=== PATIENT | male | born 1955 | race Caucasian/White ===

== ENCOUNTER 2018-11-30 22:19 | Emergency (ER) | payer MEDICARE, OTHER ==
[~2018-11-30] VITALS: Ht 180.3 cm; Wt 70.0 kg
[2018-11-30 22:30] VITALS: Ht 180.3 cm; Wt 70.0 kg
--- NOTE | 2018-12-01 00:25 | ERD ---
ER Documentation Chief Complaint Chief Complaint abdominal pain today HPI The patient is a 63-year-old male, presenting to the ER because of diffuse abdominal pain that began around yesterday 5 PM, denies similar symptoms previously, complains of vomiting x2 hours initially food then mucus, denies fever, chills, neck pain, chest pain, dyspnea, dysuria, diarrhea. He does not smoke nor drink Past medical history: None Past surgical history: Bilateral knee arthroscopy ROS All systems reviewed and are negative except as per history of present illness. Medications Home Meds Active Scripts Ibuprofen* (Motrin*) 600 Mg Tab, 600 MG PO Q6H PRN for PAIN, #20 TAB Prov:KARLI KENNEDY MD 12/01/18 Amoxicillin/Potassium Clav (Amox-Clav 875-125 mg Tablet) 875-125 mg Tab, 1 TAB PO TID for 7 Days, #21 TAB Prov:KARLI KENNEDY MD 12/01/18 Physical Exam Vitals Vital Signs Date Temp Pulse Resp B/P (MAP) Pulse Ox O2 O2 Flow FiO2 Time Delivery Rate 12/01/18 98.0 97 20 168/91 97 Room Air 03:23 (116) 12/01/18 72 26 181/88 98 Room Air 01:31 (119) 11/30/18 99.7 77 18 198/96 98 22:30 (130) Physical Exam Const: No acute distress. Head: Atraumatic. Eyes: Normal Conjunctiva. ENT: Normal External Ears, Nose and Mouth. Neck: Full range of motion. No meningismus. Resp: Clear to auscultation bilaterally. Cardio: Regular rate and rhythm. Abd: Soft, non distended, normal bowel sounds, vague and diffuse abdominal tenderness, no rigidity/rebound/CVA tenderness Skin: No petechiae or rashes. Back: No midline or flank tenderness. Ext: No cyanosis, or edema. Neur: Awake and alert. No focal deficit Psych: Normal Mood and Affect. Result Diagram: 12/01/1811312/01/18113 Results 24 hrs Laboratory Tests Test 12/01/18 01:14 12/01/18 02:29 White Blood Count 13.6 10^3/ul Red Blood Count 4.68 10^6/ul Hemoglobin 13.6 g/dl Hematocrit 42.1 % Mean Corpuscular Volume 90.0 fl Mean Corpuscular Hemoglobin 29.1 pg Mean Corpuscular Hemoglobin Concent 32.3 g/dl Red Cell Distribution Width 12.6 % Platelet Count 321 10^3/UL Mean Platelet Volume 9.8 fl Immature Granulocytes % 0.400 % Neutrophils % 92.6 % Lymphocytes % 3.5 % Monocytes % 3.2 % Eosinophils % 0.0 % Basophils % 0.3 % Nucleated Red Blood Cells % 0.0 /100WBC Immature Granulocytes # 0.050 10^3/ul Neutrophils # 12.6 10^3/ul Lymphocytes # 0.5 10^3/ul Monocytes # 0.4 10^3/ul Eosinophils # 0.0 10^3/ul Basophils # 0.0 10^3/ul Nucleated Red Blood Cells # 0.0 10^3/ul Sodium Level 141 mmol/L Potassium Level 4.1 mmol/L Chloride Level 101 mmol/L Carbon Dioxide Level 29 mmol/L Anion Gap 11 Blood Urea Nitrogen 14 mg/dl Creatinine 0.76 mg/dl Est Glomerular Filtrat Rate mL/min > 60 mL/min Glucose Level 204 mg/dl Calcium Level 9.4 mg/dl Total Bilirubin 0.4 mg/dl Direct Bilirubin 0.00 mg/dl Indirect Bilirubin 0.4 mg/dl Aspartate Amino Transf (AST/SGOT) 23 IU/L Alanine Aminotransferase (ALT/SGPT) 7 IU/L Alkaline Phosphatase 58 IU/L Total Protein 8.0 g/dl Albumin 4.7 g/dl Globulin 3.30 g/dl Albumin/Globulin Ratio 1.42 Lipase 42 U/L Bedside Urine pH (LAB) 7.0 Bedside Urine Protein (LAB) 1+ Bedside Urine Glucose (UA) 0.50% Bedside Urine Ketones (LAB) Negative Bedside Urine Blood Trace-intact Bedside Urine Nitrite (LAB) Negative Bedside Urine Leukocyte Esterase (L Negative Current Medications Medications Dose Sig/Shital Start Time Status Last (Trade) Ordered Route PRN Stop Time Admin Dose Reason Admin Ketorolac 15 mg ONCE STAT 12/01/18 DC 12/01/18 Tromethamine IV 00:44 01:09 (Toradol) 12/01/18 00:46 Ondansetron 4 mg ONCE STAT 12/01/18 DC 12/01/18 HCl (Zofran IV 00:44 01:09 Inj) 12/01/18 00:46 875 mg ONCE ONCE 12/01/18 DC 12/01/18 Amoxicillin/ PO 02:30 03:12 Clavulanate 12/01/18 02:31 Potassium (Augmentin) Procedures/MDM [place] [id number] Radiology Main Line: [phone] DIAGNOSTIC IMAGING REPORT Patient: DARIA GARZA : 1955 Age: 63 Sex: M MR #: [id number] DOS: 12/01/18 0044 Ordering MD: KARLI KENNEDY MD Location: E/R Room/Bed: PROCEDURE: CT Abdomen and pelvis without contrast. CLINICAL INDICATION: Abdominal pain. TECHNIQUE: CT scan of the abdomen and pelvis was performed on a multi- detector high-resolution CT scanner. Contiguous axial images were obtained from the lung bases to the ischial tuberosities without intravenous contrast. Coronal and sagittal reformatted images were also obtained. Images were reviewed on the PACS workstation. DICOM images are available. One or more of the following dose reduction techniques were used: - Automated exposure control. - Adjustment of the mA and/or kV according to patient size. - Use of iterative reconstruction technique. Exam CTD/vol = 8.58 mGy. Total exam DLP = 567.99 mGy-cm. COMPARISON: None. FINDINGS: Evaluation of the lung bases demonstrates mild bibasilar atelectasis. Abdomen: The liver is normal in size. There is no focal mass or dilatation of the biliary tree. The gallbladder is distended. The spleen, pancreas and bilateral adrenal glands are within normal limits. Bilateral kidneys are normal in size with a cyst within the upper pole of the right kidney. There is no radiopaque renal or ureteral calculus identified. There is no hydronephrosis or hydroureter. There is no retroperitoneal adenopathy. The abdominal aorta is of normal caliber. There is a small umbilical hernia containing fat. There is no bowel obstruction or free air. A normal appendix is identified. There is diverticulosis of the descending and sigmoid colon with mild thickening. There is no ascites. Pelvis: The bladder is unremarkable. There are bilateral small inguinal hernias containing fat. The prostate and seminal vesicles are within normal limits. There is no significant pelvic adenopathy or free fluid. Evaluation of the osseous structures demonstrates no suspicious lytic or blastic lesion. IMPRESSION: Descending and sigmoid diverticulosis. There is mild thickening of the descending and sigmoid colon which could be due to underdistension or represent a nonspecific colitis or mild diverticulitis. Small umbilical and bilateral inguinal hernias containing fat. Right renal cyst. .Sesar Colby MD, MD Date Time Electronically viewed and signed by .Sesar Colby MD, MD on 12/01/2018 01:49 .T/ CC: KARLI KENNEDY MD [id number] MEDICAL MAKING DECISION: The patient is 63-year-old male, presenting with acute mild diverticulitis, treated with Toradol and 50 mg IV for pain, Zofran 4 mg IV for nausea, Augmentin 875 mg p.o. for diverticulitis with good response, is stable for outpatient follow-up The differential diagnoses considered include but are not limited to cholelithiasis, cholecystitis, choledocholithiasis, cholangitis, pancreatitis, hepatitis, gastritis, peptic ulcer disease, gastric ulcer, appendicitis, cystitis, diverticulitis, partial small bowel obstruction. Departure Diagnosis: Primary Impression: Diverticulitis Additional Impression: Anemia Condition: Good Comments She was discharged with Augmentin 875 mg tid, Motrin The patient's blood pressure was elevated (>120/80) but appears stable without evidence of hypertension emergency or urgency. The patient was counseled about the risks of hypertension and urged to pursue outpatient monitoring and therapy within a week with their primary care physician. I discussed the findings with the patient. I advised the patient to follow-up with the primary physician in about 1-2 days, sooner if needed and return if any concern. Disclaimer: Inadvertent spelling and grammatical errors are likely due to EHR/dictation software use and do not reflect on the overall quality of patient care. Also, please note that the electronic time recorded on this note does not necessarily reflect the actual time of the patient encounter. KARLI KENNEDY MD Dec 01, 2018 00:25
[2018-12-01] MEDS ORDERED: KETOROLAC 15 MG INJ IV STA (00:44)
[2018-12-01] MEDS ORDERED: ONDANSETRON 4 MG INJ IV STA (00:44)
[2018-12-01] MEDS ORDERED: AMOX1TAB10 PO (02:27)
[2018-12-01] MEDS ORDERED: IBUP-1542 PO (02:27)
[2018-12-01] MEDS ORDERED: AMOXICILLIN/CLAV 875 MG TAB PO ONE (02:30)
[2018-12-01 03:23] VITALS: BP 168/91; PULSE 97; RESP 20
== END 2018-12-01 03:25 | disposition home or self-care (01) ==
LOC: E/R 22:19
DX: K57.32 Diverticulitis of large intestine without perforation or abscess without bleeding (principal); D64.9 Anemia, unspecified; R40.2142 Coma scale, eyes open, spontaneous, at arrival to emergency department; R40.2362 Coma scale, best motor response, obeys commands, at arrival to emergency department; R40.2252 Coma scale, best verbal response, oriented, at arrival to emergency department
CPT/HCPCS: 36415; 74176; 80053; 81003; 83690; 85025; 96374; 96375; 99285; J1885; J2405